=== PATIENT | male | born 1960 | race Caucasian/White ===

== ENCOUNTER 2017-03-16 19:05 | Emergency (ER) | payer OTHER ==
[~2017-03-16] VITALS: Ht 162.6 cm; Wt 68.4 kg
[~2017-03-16 19:05] MED LIST: OMEP20CA5 PO; RANI150 PO
[2017-03-16 19:28] VITALS: BP 128/92; PULSE 83; RESP 18; TEMP 98.4; O2SAT 99
--- NOTE | 2017-03-16 19:54 | PD ---
HPI Chief Complaint: Chest Pain Time Seen by Provider: 19:52 Travel History International Travel<30 days: No Contact w/Intl Traveler<30days: No Traveled to known affect area: No History of Present Illness HPI The patient is a 56-year-old male with no known history of heart disease who complains of a feeling of sharp pain, like somebody punched him in the chest located just to the right of the sternum, constant and associated with movement and breathing and not associated with nausea, shortness of breath, diaphoresis or radiation of pain. He does not smoke and does not have a history of hypertension, diabetes or elevated cholesterol. Apparently, his friend and family told him to get this checked out. He did not want to come. He has never had a stress test. [facility] Past Medical History Diminished Hearing: No Hypertension: Yes Immunizations Current: Yes Tetanus Vaccination: < 5 Years Social History Alcohol Use: Yes (OCC) Tobacco Use: No Substance Use: No Allergies-Medications (Allergen,Severity, Reaction): Coded Allergies: penicillin G (Unverified Allergy, Unknown, UNKNOWN, 03/16/17) Reported Meds & Prescriptions Reported Meds & Active Scripts Active No Active Prescriptions or Reported Medications Review of Systems Except as stated in HPI: all other systems reviewed are Neg Physical Exam Narrative GENERAL: The patient is alert, playing 3 in minimal apparent distress with his chest pain. His vital signs show blood pressure 120/92 but are otherwise normal. SKIN: Focused skin assessment warm/dry. HEAD: Atraumatic. Normocephalic. EYES: Pupils equal and round. No scleral icterus. No injection or drainage. ENT: No nasal bleeding or discharge. Mucous membranes pink and moist. NECK: Trachea midline. No JVD. CARDIOVASCULAR: Regular rate and rhythm. No murmur appreciated. RESPIRATORY: No accessory muscle use. Clear to auscultation. Breath sounds equal bilaterally. I can completely reproduce the patient's pain by pressing on the ribs at the costochondral junction to the right of the mid sternum. GASTROINTESTINAL: Abdomen soft, non-tender, nondistended. Hepatic and splenic margins not palpable. MUSCULOSKELETAL: No obvious deformities. No clubbing. No cyanosis. No edema. NEUROLOGICAL: Awake and alert. No obvious cranial nerve deficits. Motor grossly within normal limits. Normal speech. PSYCHIATRIC: Appropriate mood and affect; insight and judgment normal. Data Data Last Documented VS Vital Signs Date Time Temp Pulse Resp B/P (MAP) Pulse Ox O2 Delivery O2 Flow Rate FiO2 03/16/17 19:59 18 99 Room Air 03/16/17 19:31 83 03/16/17 19:28 98.4 128/92 (104) Orders Orders Electrocardiogram (03/16/17 19:36) Complete Blood Count With Diff (03/16/17 19:36) Basic Metabolic Panel (Bmp) (03/16/17 19:36) Ckmb (Isoenzyme) Profile (03/16/17 19:36) Troponin I (03/16/17 19:36) Iv Access Insert/Monitor (03/16/17 19:36) Ecg Monitoring (03/16/17 19:36) Oximetry (03/16/17 19:36) Chest, Pa & Lat (03/16/17 ) Aspirin (Aspirin) (03/16/17 20:30) CKMB (03/16/17 19:55) CKMB% (03/16/17 19:55) Labs Laboratory Tests Test 03/16/17 19:55 White Blood Count 11.0 TH/MM3 Red Blood Count 4.56 MIL/MM3 Hemoglobin 14.5 GM/DL Hematocrit 41.1 % Mean Corpuscular Volume 90.1 FL Mean Corpuscular Hemoglobin 31.8 PG Mean Corpuscular Hemoglobin Concent 35.3 % Red Cell Distribution Width 11.8 % Platelet Count 325 TH/MM3 Mean Platelet Volume 7.8 FL Neutrophils (%) (Auto) 70.1 % Lymphocytes (%) (Auto) 20.8 % Monocytes (%) (Auto) 6.0 % Eosinophils (%) (Auto) 2.1 % Basophils (%) (Auto) 1.0 % Neutrophils # (Auto) 7.7 TH/MM3 Lymphocytes # (Auto) 2.3 TH/MM3 Monocytes # (Auto) 0.7 TH/MM3 Eosinophils # (Auto) 0.2 TH/MM3 Basophils # (Auto) 0.1 TH/MM3 CBC Comment DIFF FINAL Differential Comment Blood Urea Nitrogen 23 MG/DL Creatinine 0.99 MG/DL Random Glucose 120 MG/DL Calcium Level 8.5 MG/DL Sodium Level 138 MEQ/L Potassium Level 4.1 MEQ/L Chloride Level 100 MEQ/L Carbon Dioxide Level 31.1 MEQ/L Anion Gap 7 MEQ/L Estimat Glomerular Filtration Rate 78 ML/MIN Total Creatine Kinase 132 U/L Creatine Kinase MB 1.6 NG/ML Troponin I LESS THAN 0.02 NG/ML MDM Medical Decision Making Medical Screen Exam Complete: Yes Emergency Medical Condition: Yes Medical Record Reviewed: Yes Interpretation(s) The EKG shows sinus rhythm with a rate of 87 and is completely normal. The CBC is normal. The basic metabolic profile shows a BUN of 23, GFR of 78 but is otherwise normal. The cardiac enzymes are normal. The chest x-ray shows no acute intrathoracic disease. Differential Diagnosis Acute coronary syndrome, pleurisy, chest wall pain, chest pain etiology undetermined, gastrointestinal pain, esophageal pain Narrative Course The patient likely has chest wall pain. It is easily reproducible by pressing on the chest and his cardiac enzymes, EKG, chest x-ray and other blood work is essentially unremarkable. Nevertheless, he does need a stress test. I explained to him the limitations of our testing here and he understood. He says he'll get a stress test through his primary care physician. He does not want to stay for a stress test here. He was strongly encouraged to stay here and get a stress test. Diagnosis Primary Impression: Chest pain of unknown etiology Additional Instructions: We tried to do a stress test during this admission but you declined. I hope you will get one through your primary care physician as soon as possible. I urge you to take an 81 mg aspirin daily. Med/Other Pt SpecificInfo: Existing Med Changed Scripts No Active Prescriptions or Reported Meds Disposition: DISCHARGE HOME Condition: Stable Luis Enrique Dumont MD Mar 16, 2017 19:54
[2017-03-16 19:59] VITALS: RESP 18; O2SAT 99
[2017-03-16 20:04] LABS: AUTOMATED NEUTROPHIL # 7.7 TH/MM3 (1.8-7.7); BASOPHIL # 0.1 TH/MM3 (0-0.2); EOSINOPHIL # 0.2 TH/MM3 (0-0.4); EOSINOPHIL % 2.1 % (0.0-4.0); HEMATOCRIT 41.1 % (39.0-51.0); HEMO FLAGS DIFF FINAL; LYMPH % 20.8 % (9.0-44.0); LYMPHOCYTE # 2.3 TH/MM3 (1.0-4.8); MEAN CELL VOLUME 90.1 FL (80.0-100.0); MEAN CORPUSCULAR HEMOGLOBIN 31.8 PG (27.0-34.0); MEAN CORPUSCULAR HGB CONC 35.3 % (32.0-36.0); NEUT % 70.1 % (16.0-70.0); PLATELET COUNT 325 TH/MM3 (150-450); RED BLOOD COUNT 4.56 MIL/MM3 (4.50-5.90); RED CELL DISTRIBUTION WIDTH 11.8 % (11.6-17.2)
[2017-03-16 20:16] LABS: CHLORIDE 100 MEQ/L (98-107); POTASSIUM 4.1 MEQ/L (3.5-5.1); SODIUM (NA) 138 MEQ/L (136-145)
[2017-03-16 20:20] LABS: ANION GAP 7 MEQ/L (5-15); BICARBONATE 31.1 MEQ/L (21.0-32.0); BLOOD UREA NITROGEN 23 MG/DL (7-18)
[2017-03-16 20:23] LABS: GLOMERULAR FILTRATION RATE 78 ML/MIN (>89)
[2017-03-16 20:27] LABS: CREATINE KINASE 132 U/L (39-308)
[2017-03-16] MEDS ORDERED: ASPIRIN 325 MG TAB PO ONE (20:30)
[2017-03-16 20:39] LABS: CKMB 1.6 NG/ML (0.5-3.6)
--- NOTE | 2017-03-16 20:41 | RADRPT ---
EXAM DATE/TIME: 03/16/2017 20:29 [facility] COMPARISON: No previous studies available for comparison. INDICATIONS : Chest pain. MEDICAL HISTORY : None. SURGICAL HISTORY : Spinal mulugeta. ENCOUNTER: Initial ACUITY: 1 day PAIN SCORE: 4/10 LOCATION: Bilateral chest FINDINGS: PA and lateral views of the chest demonstrate the lungs to be symmetrically aerated without evidence of mass, infiltrate or effusion. The cardiomediastinal contours are unremarkable. Osseous structure s are intact. There is scoliosis of the thoracic and lumbar spine with a single spinal mulugeta in place. CONCLUSION: No acute intrathoracic disease. Justen Dong MD on March 16, 2017 at 20:39 Board Certified Radiologist. This report was verified electronically.
[2017-03-16 20:50] VITALS: BP 113/75; PULSE 82; RESP 18; O2SAT 98
--- NOTE | 2017-03-17 16:42 | EKG ---
Date Performed: 03/16/2017 Time Performed: 19:23:31 PTAGE: 56 years EKG: Sinus rhythm NORMAL ECG NO PREVIOUS TRACING DOCTOR: Bibiana Perez Interpretating Date/Time 03/17/2017 16:39:06
== END 2017-03-16 21:44 | disposition home or self-care (01) ==
LOC: PHED 19:05
DX: R07.9 Chest pain, unspecified (principal); I10 Essential (primary) hypertension
CPT/HCPCS: 71020; 80048; 82550; 82552; 84484; 85025; 93005; 99284